=== PATIENT | male | born 1980 | race African-American/Black ===

== ENCOUNTER 2017-05-19 10:58 | Emergency (ER) | payer BC ==
[~2017-05-19] VITALS: Ht 172.7 cm; Wt 79.2 kg
[2017-05-19 11:08] VITALS: TEMP 99.3
[2017-05-19 11:45] LABS: INR 0.9 (0.8-3.0); PROTHROMBIN TIME 10.7 SECONDS (9.7-12.8)
[2017-05-19 11:49] LABS: ALANINE AMINOTRANSFERASE 43 U/L (21-72); ALBUMIN 4.5 gm/dL (3.5-5.0); ALKALINE PHOSPHATASE 74 U/L (50-136); ANION GAP 15 mmol/L (7-16); AST,SGOT 33 U/L (15-37); BILIRUBIN,TOTAL 0.9 mg/dL (0.0-1.0); BLOOD UREA NITROGEN 10 mg/dL (9-20); CALCIUM 9.1 mg/dL (8.4-10.2); CARBON DIOXIDE 24 mmol/L (22-30); CHLORIDE 106 mmol/L (98-107); CREATININE, serum 1.15 mg/dL (0.66-1.25); GLUCOSE 103 mg/dL (74-106); SODIUM 145 mmol/L (137-145); TOTAL PROTEIN 7.8 gm/dL (6.4-8.2)
[2017-05-19 11:59] LABS: BASO # 0.1 (0.0-0.2); BASO % 0.9 % (0.0-2.0); EOS % 0.6 % (0-4.0); GRAN % 59.3 % (42.2-75.2); HEMATOCRIT 43.1 % (42.0-52.0); HEMOGLOBIN 14.2 g/dl (13.5-18.0); LYMPH # 2.1 (1.2-3.4); LYMPH % 31.7 % (20.0-51.0); MEAN CELL VOLUME 85 fl (80.0-100.0); MEAN CORPUSCULAR HEMOGLOBIN 28 pg (27.0-31.0); MEAN CORPUSCULAR HGB CONC 33 g/dl (33.0-37.0); MONO # 0.5 (0.1-0.6); MONO % 7.2 % (1.7-9.3); PLATELET COUNT 262 K/mm3 (130-400); RED BLOOD COUNT 5.06 M/mm3 (4.20-5.60); REDCELL DISTRIBUTION WIDTH-CV 13.9 % (11.5-14.5)
[2017-05-19 12:01] LABS: TROPONIN-I < 0.012 ng/mL (0.000-0.034)
[2017-05-19 13:20] VITALS: BP 143/89; PULSE 81
== END 2017-05-19 12:52 | disposition home or self-care (01) ==
LOC: COL.ER 10:58
PROVIDERS: Nurse Practitioner
DX: I49.3 Ventricular premature depolarization (principal)

== ENCOUNTER → 2017-05-26 | Outpatient (CLI) | payer BC | LOC: COL.CARD 08:00 | DX: I49.3 Ventricular premature depolarization (principal) ==